=== PATIENT | female | born 1965 ===

== ENCOUNTER 2016-10-15 14:06 | Outpatient (CLI) | payer OTHER ==
--- NOTE | 2016-10-15 15:30 | Mammography Report ---
BILATERAL DIGITAL AUGMENTED DIAGNOSTIC MAMMOGRAM WITH CAD and RIGHT BREAST ULTRASOUND: 10/15/16 14:06:00 CLINICAL: Right chest wall pain which the patient says she has had for a long time (as long as ten years) and it comes and goes. She describes it as being very deep behind the implant. A report from a [facility] screen mammogram from 06/14/14 describes right calcifications. However, the patient did not return for magnification views. COMPARISON:None available. We will request the prior [facility] mammogram. FINDINGS: Bilateral MLO and CC views with and without implant displacement demonstrate heterogeneously dense breasts, which may obscures small masses. A cluster of punctate and amorphous calcifications is identified near the nipple 9 o'clock. No associated mass or architectural distortion. The left breast is negative. Intact subglandular implants. Ultrasound of the right breast (including all four quadrants and the retroareolar area) was performed and demonstrated a subareolar cyst at 11 o'clock measuring 1.2 x 0.3 x 1.1 cm and a cyst at 3 o'clock 3 cm from the nipple measuring 0.9 x 0.7 x 0.3 cm. The rest of the right breast is normal. No mass or shadowing. Intact breast implant. IMPRESSION: Right periareolar calcifications which require comparison with the prior mammogram. Small benign cysts of the right breast. No explanation for right breast or chest wall pain. We will attempt to obtain the prior mammogram from [facility] and make comparison. BI-RADS CATEGORY: 0 -- Needs Additional Evaluation
== END 2016-10-15 14:07 | disposition home or self-care (01) ==
LOC: SPVWC 14:06
PROVIDERS: ATTEND Family Medicine
DX: N60.01 Solitary cyst of right breast (principal); R92.1 Mammographic calcification found on diagnostic imaging of breast; R07.9 Chest pain, unspecified; Z98.82 Breast implant status
CPT/HCPCS: 76641; G0204; 77066